=== PATIENT | male | born 1955 | race Two or more races ===

== ENCOUNTER 2024-01-05 13:56 | Emergency (ER) | payer OTHER ==
[2024-01-05 14:53] VITALS: BP 142/72; PULSE 68; RESP 17; TEMP 97.6; BMI 30.4
[2024-01-05] MEDS ORDERED: IBUPROFEN 400 MG TABLET (FP) PO ONE (16:34)
[2024-01-05] MEDS ORDERED: ACETAMINOPHEN 500 MG TABLET (FP) ONE (16:34)
[2024-01-05] MEDS ORDERED: LIDOCAINE 4% PATCH TP ONE (16:34)
[2024-01-05] MEDS: IBUPROFEN 400 MG TABLET (FP) PO ONE (16:42)
[2024-01-05] MEDS: LIDOCAINE 4% PATCH TP ONE (16:42)
[2024-01-05] MEDS: ACETAMINOPHEN 500 MG TABLET (FP) PO ONE (16:43)
[2024-01-05] MEDS ORDERED: LIDOCAINE PATCH REMOVAL MC SCH (22:00)
== END 2024-01-05 16:49 | disposition home or self-care (01) ==
LOC: JERFT 13:56
DX: M54.9 Dorsalgia, unspecified (principal); V73.6XXA Passenger on bus injured in collision with car, pick-up truck or van in traffic accident, initial encounter; Y92.410 Unspecified street and highway as the place of occurrence of the external cause
CPT/HCPCS: 99283-25